=== PATIENT | male | born 1995 | race Caucasian/White ===

== ENCOUNTER 2023-01-07 15:57 | Emergency (ER) | payer OTHER ==
[~2023-01-07] VITALS: Ht 180.3 cm; Wt 81.6 kg
--- NOTE | 2023-01-07 16:15 | NUR ---
BIBS C/O RIGHT SIDED NUMBNESS FOR UE FACE AND BODY THAT STARTED 6 DAYS AGO.
--- NOTE | 2023-01-07 17:13 | NUR ---
BLOOD DRAWN AND SENT TO LAB.
[2023-01-07 17:22] LABS: BASOPHILS # (AUTO) 0.1 K/uL (0.0-0.2); BASOPHILS % (AUTO) 0.7 % (0.0-2.0); EOSINOPHILS % (AUTO) 0.4 % (0.0-6.0); HEMATOCRIT 44 % (39-51); HEMOGLOBIN 14.6 g/dL (13.5-17.5); LYMPHOCYTES # (AUTO) 1.9 K/uL (0.8-4.8); LYMPHOCYTES % (AUTO) 27.6 % (20.0-44.0); MEAN CORPUSCULAR HGB CONC 34 g/dl (31.0-36.0); MEAN CORPUSCULAR VOLUME 92 fL (80-96); MONOCYTES # (AUTO) 0.6 K/uL (0.1-1.30); MONOCYTES % (AUTO) 8.3 % (2.0-12.0); NEUTROPHILS # (AUTO) 4.3 K/uL (1.8-8.9); PLATELET COUNT (AUTO) 213 K/uL (150-450); RED BLOOD CELL COUNT(AUTO) 4.74 MIL/uL (4.5-6.0); WHITE BLOOD COUNT (AUTO) 6.9 K/uL (4.3-11.0)
[2023-01-07 17:42] LABS: CALCIUM, SERUM 9.1 mg/dL (8.5-10.1); POTASSIUM 3.5 mmol/L (3.5-5.1)
--- NOTE | 2023-01-07 19:37 | NUR ---
IV removed. Catheter intact and site benign. Pressure and 4x4 applied to site. No bleeding noted.
--- NOTE | 2023-01-07 19:37 | NUR ---
Patient discharged to home in stable condition. Written and verbal after care instructions given. Patient verbalizes understanding of instruction.
[2023-01-07 19:38] VITALS: BP 125/75
== END 2023-01-07 19:37 | disposition home or self-care (01) ==
LOC: ER 16:05
DX: R20.2 Paresthesia of skin (principal); Z60.2 Problems related to living alone
CPT/HCPCS: 36415; 70450-TC; 80048-TC; 85025-TC

== ENCOUNTER 2025-05-19 21:57 | Emergency (ER) | payer MEDICAID, OTHER ==
[~2025-05-19] VITALS: Ht 180.3 cm; Wt 84.8 kg
[2025-05-19] MEDS ORDERED: FAMOTIDINE/PF INJ 20 MG/2 ML VIAL IV ONE (22:30)
[2025-05-19] MEDS ORDERED: ONDANSETRON HCL/PF 4 MG/2 ML VIAL ONE (22:30)
[2025-05-19] MEDS: IV NS 0.9% 1,000 ML BAG IV ONE (22:51)
[2025-05-19] MEDS: ONDANSETRON HCL/PF 4 MG/2 ML VIAL IVP ONE (22:52)
[2025-05-19] MEDS: FAMOTIDINE/PF INJ 20 MG/2 ML VIAL IV ONE (22:52)
[2025-05-19 22:58] LABS: PLATELET COUNT (AUTO) 155 K/uL (150-450); RED BLOOD CELL COUNT(AUTO) 5.00 MIL/uL (4.5-6.0); RED CELL DISTRIBUTION WIDTH 12.7 % (11.5-15.0); WHITE BLOOD COUNT (AUTO) 10.6 K/uL (4.3-11.0)
[2025-05-19 22:59] LABS: CALCIUM, SERUM 8.5 mg/dL (8.5-10.1); CREATININE 1.0 mg/dL (0.6-1.3); SODIUM SERUM 134.0 mmol/L (136-145); UREA NITROGEN, BLOOD 12.0 mg/dL (7-18)
[2025-05-19 23:05] LABS: ASPARTATE AMINOTRANSFERASE 21.0 U/L (15-37); TOTAL PROTEIN, SERUM 7.3 g/dL (6.4-8.2)
[2025-05-19] MEDS ORDERED: ONDA4TAB5 PO (23:39)
[2025-05-19] MEDS ORDERED: LOPE2CAP40 PO (23:48)
[2025-05-20 00:03] VITALS: BP 132/87; TEMP 98.1; O2SAT 97
[2025-05-20 05:46] LABS: LYMPHOCYTES % (MANUAL) 12 % (16-48); MONOCYTES % (MANUAL) 16 % (0-11.0); NEUTROPHILS % (MANUAL) 72 (42-76); PLATELET ESTIMATE PLATELET CLUMPS SEEN
== END 2025-05-20 00:04 | disposition home or self-care (01) ==
LOC: ER 21:58
DX: R11.10 Vomiting, unspecified (principal); R19.7 Diarrhea, unspecified
CPT/HCPCS: 99284; 96374; 96361; 96375; 85027; 80048; 83690; 80076; 85007; 36415; J1308; J2405